=== PATIENT | female | born 1990 | race Caucasian/White ===

== ENCOUNTER 2018-06-28 03:04 | Emergency (ER) | payer MEDICAID, OTHER ==
[~2018-06-28] VITALS: Ht 170.2 cm; Wt 77.3 kg
[~2018-06-28 03:04] MED LIST: PRENATAL PO
[2018-06-28 05:21] VITALS: BP 130/80
[2018-06-28] MEDS ORDERED: HYDROCODONE/ACETAMINOPHEN 5-325 MG TABLET PO ONE (06:00)
[2018-06-28] MEDS ORDERED: AMOXICILLIN TRIHYDRATE 250 MG CAPSULE PO ONE (06:00)
== END 2018-06-28 06:03 | disposition home or self-care (01) ==
LOC: EMS 03:04
DX: H65.01 Acute serous otitis media, right ear (principal)

== ENCOUNTER 2020-09-14 14:16 | Emergency (ER) | payer OTHER ==
[~2020-09-14] VITALS: Ht 165.1 cm; Wt 105.0 kg
[~2020-09-14 14:16] MED LIST changes: +COLACE PO; +NORCO 5/325 PO; -PRENATAL PO
[2020-09-14 16:05] LABS: ANION GAP 17 mmol/L (8-16); CALCIUM, TOTAL 9.3 mg/dL (8.8-10.5); CARBON DIOXIDE 24 mmol/L (22-29); CHLORIDE 101 mmol/L (98-107); CREATININE 0.83 mg/dL (0.60-1.30); GLOMERULAR FILTR. RATE CALC > 60 mL/min (>60); GLUCOSE,RANDOM 107 mg/dL (70-110); POTASSIUM 3.8 mmol/L (3.5-5.1); SODIUM SERUM 142 mmol/L (136-145); UREA NITROGEN, BLOOD 18 mg/dL (7-18)
[2020-09-14 16:06] LABS: BASOPHILS % (AUTO) 0.5 % (0.0-2.0); EOSINOPHILS % (AUTO) 0.1 % (1.0-6.0); HEMATOCRIT 40.4 % (36-46); HEMOGLOBIN 12.7 g/dL (12.0-16.0); LYMPHOCYTES # (AUTO) 1.4 K/uL (1.0-4.8); LYMPHOCYTES % (AUTO) 11.5 % (22.0-44.0); MEAN CORPUSCULAR HEMOGLOBIN 24.7 pg (26.0-34.0); MEAN CORPUSCULAR HGB CONC 31.3 G/dL (31.0-37.0); MEAN CORPUSCULAR VOLUME 79 fL (80-100); MONOCYTES # (AUTO) 1.2 K/uL (0.1-1.0); MONOCYTES % (AUTO) 10.2 % (2.0-9.0); NEUTROPHILS # (AUTO) 9.4 K/uL (1.8-7.7); NEUTROPHILS % (AUTO) 77.7 % (40.0-70.0); PLATELET COUNT (AUTO) 291 K/uL (150-450); RED BLOOD CELL COUNT(AUTO) 5.12 MIL/uL (4.00-5.20)
[2020-09-14 16:11] LABS: INR 1.1 (0.9-1.1); PROTHROMBIN TIME 11.3 SEC (9.4-11.6)
[2020-09-14 16:31] LABS: ALANINE AMINOTRANSFERASE 21 U/L (12-78); ALBUMIN 4.7 g/dL (3.4-5.0); ALKALINE PHOSPHATASE 52 U/L (46-116); ASPARTATE AMINOTRANSFERASE 22 U/L (15-37); BILIRUBIN,TOTAL 0.6 mg/dL (0.1-1.0); CREATINE KINASE, TOTAL ONLY 331 U/L (26-192); HCG,QUANTITATIVE < 1 mIU/mL (0-6); LIPASE 41 U/L (73-393)
[2020-09-14 16:41] LABS: LACTIC ACID 2.2 mmol/L (0.4-2.0)
[2020-09-14] MEDS ORDERED: SODIUM CHLORIDE 0.9% 1,000 ML IV ONE (16:45)
[2020-09-14 16:47] LABS: COVID AG,FIA SOURCE NASOPHARYNGEAL
[2020-09-14] MEDS ORDERED: CefTRIAXone SODIUM 1 GM/VIAL IM ONE (17:00)
[2020-09-14] MEDS ORDERED: MetroNIDAZOLE 500 MG TABLET PO ONE (17:00)
[2020-09-14] MEDS ORDERED: LIDOCAINE/PF 1% 2 ML VIAL IM ONE (17:00)
[2020-09-14] MEDS ORDERED: AZITHROMYCIN 500 MG TABLET PO ONE (17:00)
[2020-09-14] MEDS ORDERED: SODIUM CHLORIDE 0.9% 100 ML ONE (17:39)
[2020-09-14] MEDS ORDERED: IOVERSOL 350 MG/ML 150 ML VIAL ONE (17:39)
[2020-09-14 18:10] LABS: APPEARANCE,URINE CLOUDY (CLEAR); BILIRUBIN,URINE PRELIM. POSITIVE (NEGATIVE); GLUCOSE, URINE (UA) NEGATIVE (NEGATIVE); KETONES,URINE TRACE mg/dL (NEGATIVE); LEUKOCYTE ESTERASE ,URINE NEGATIVE (NEGATIVE); NITRATE,URINE NEGATIVE (NEGATIVE); OCCULT BLOOD,URINE TRACE (NEGATIVE); PROTEIN,URINE POS 1+ (NEGATIVE)
[2020-09-14 18:16] LABS: AMPHET/METH SCREEN,URINE POSITIVE (NEGATIVE); BARBITURATE SCREEN, URINE NEGATIVE (NEGATIVE); BENZODIAZEPINES SCREEN,URINE NEGATIVE (NEGATIVE); CANNABINOID SCREEN,URINE POSITIVE (NEGATIVE); COCAINE SCREEN,URINE NEGATIVE (NEGATIVE); METHADONE SCREEN, URINE NEGATIVE (NEGATIVE); OPIATE SCREEN,URINE NEGATIVE (NEGATIVE)
[2020-09-14 18:17] LABS: PHENCYCLIDINE SCREEN,URINE NEGATIVE (NEGATIVE)
[2020-09-14 18:26] LABS: BACTERIA,URINE Rare /HPF (None Seen); RBC,URINE 0-2 /HPF (0-2); WBC,URINE 0-2 /HPF (0-5)
[2020-09-14 18:27] LABS: SQUAMOUS EPITHELIAL CELL,UR Few /LPF (None Seen)
[2020-09-14 19:30] VITALS: BP 119/64
== END 2020-09-14 20:59 | disposition home or self-care (01) ==
LOC: EMS 14:34
DX: T74.21XA Adult sexual abuse, confirmed, initial encounter (principal); R10.9 Unspecified abdominal pain; R11.10 Vomiting, unspecified; F12.90 Cannabis use, unspecified, uncomplicated; Z20.822 Contact with and (suspected) exposure to COVID-19
CPT/HCPCS: 36415; 74177; 80053; 80074; 80307; 81001; 82550; 83605; 83690; 84702; 85025; 85610; 87426; 96360; 96372; 99285; A9575; G0480; J0696; J3490; J7030; J7050; Q9967; U0003

== ENCOUNTER 2022-10-27 13:55 | Emergency (ER) | payer OTHER ==
[~2022-10-27] VITALS: Ht 167.6 cm; Wt 85.9 kg
[2022-10-27] MEDS ORDERED: PERTUSS(ACELL),DIPH,TET VAC/PF 0.5 ML SYRINGE IM. ONE (14:15)
[2022-10-27] MEDS ORDERED: RABIES VACCINE, HUMAN DIPLOID/PF 2.5 UNITS/ML VIAL IM. ONE (14:15)
[2022-10-27] MEDS ORDERED: RABIES IMMUNE GLOBULIN/PF 300 UNITS/ML 5 ML VIAL IM. ONE (14:15)
[2022-10-27] MEDS ORDERED: BACITRACIN 0.9 GM PACKET OINTMENT TP ONE (14:15)
[2022-10-27] MEDS ORDERED: AMOX TR/POT CLAV 875 MG/125 MG TABLET PO ONE (14:15)
[2022-10-27] MEDS ORDERED: ACETAMINOPHEN 500 MG TABLET PO ONE (14:15)
[2022-10-27] MEDS ORDERED: AMOX1TAB16 PO (14:31)
[2022-10-27 15:20] VITALS: BP 132/92
== END 2022-10-27 15:56 | disposition home or self-care (01) ==
LOC: EMS 14:06
DX: S81.852A Open bite, left lower leg, initial encounter (principal); F12.90 Cannabis use, unspecified, uncomplicated; W54.0XXA Bitten by dog, initial encounter; Y93.89 Activity, other specified; Y92.89 Other specified places as the place of occurrence of the external cause; Y99.8 Other external cause status
CPT/HCPCS: 90375; 90471; 90675; 90715; 99284

== ENCOUNTER 2022-10-30 09:44 | Emergency (ER) | payer OTHER ==
[~2022-10-30] VITALS: Ht 170.2 cm; Wt 85.0 kg
[~2022-10-30 09:44] MED LIST changes: +AMOX1TAB16 PO
[2022-10-30 10:05] VITALS: BP 122/65
[2022-10-30] MEDS ORDERED: RABIES VACCINE, HUMAN DIPLOID/PF 2.5 UNITS/ML VIAL IM. ONE (10:30)
== END 2022-10-30 11:56 | disposition home or self-care (01) ==
LOC: EMS 09:44
DX: S81.852D Open bite, left lower leg, subsequent encounter (principal); F17.210 Nicotine dependence, cigarettes, uncomplicated; Z23 Encounter for immunization; Z98.890 Other specified postprocedural states; W54.0XXD Bitten by dog, subsequent encounter
CPT/HCPCS: 90675; 99281

== ENCOUNTER 2023-03-18 20:49 | Emergency (ER) | payer OTHER ==
[~2023-03-18] VITALS: Ht 167.6 cm; Wt 85.0 kg
[~2023-03-18 20:49] MED LIST changes: -COLACE PO; -NORCO 5/325 PO
[2023-03-18 20:53] VITALS: BP 120/75; PULSE 82; RESP 16; TEMP 98.2
== END 2023-03-18 21:58 | disposition left against medical advice (07) ==
LOC: EMS 20:51
DX: F10.129 Alcohol abuse with intoxication, unspecified (principal); Y90.9 Presence of alcohol in blood, level not specified; Z53.21 Procedure and treatment not carried out due to patient leaving prior to being seen by health care provider
CPT/HCPCS: 99281; Z7502